=== PATIENT | female | born 1940 | race Two or more races ===

== ENCOUNTER 2017-09-16 02:41 | Inpatient (IN) | payer OTHER, MEDICAID ==
[~2017-09-16] VITALS: Ht 132.1 cm; Wt 46.7 kg
[2017-09-16] MEDS ORDERED: clonazePAM 0.5 MG TABLET PO PRN (05:00)
[2017-09-16] MEDS ORDERED: MAGNESIUM HYDROXIDE 30 ML UDC PO PRN (05:00)
[2017-09-16] MEDS ORDERED: MAG HYDROX/AL HYDROX/SIMETH 30 ML UDC PO PRN (05:00)
[2017-09-16] MEDS ORDERED: TEMAZEPAM 7.5 MG CAPSULE PO PRN (05:00)
--- NOTE | 2017-09-16 05:20 | NUR ---
ADMITTED DIRECTLY FROM [facility] VIA GURNEY, CAME TO THE UNIT AROUND 0400 ACCOMPANIED BY PARAMEDICS. PATIENT ADMITTED ON 5150 HOLD FOR GD. UPON FACE TO FACE PATIENT IS ALERT TO HER NAME ONLY. PER DAUGHTER SHE'S BEEN HEARING VOICES FOR 6 MOS. SHE IS PARANOID, ERASING NUMBERS ON HER TELEPHONE, NOT SLEEPING FOR 2 DAYS, REFUSING TO EAT ALSO FOR 2 DAYS AND HAS NO VIABLE PLAN TO CARE FOR HERSELF. PLACED PATIENT IN BED COMFORTABLY, SPEAKS CAMBODIAN ONLY, STAFF HELPED TO INTERPRET FOR HER. PATIENT IS AWAKE, ALERT, ORIENTED X3, CALM, DEPRESSED, COOPERATIVE, APPROPRIATE, THOUGHT PROCESS INTACT, FORGETFUL, RESPIRATION EVEN, BREATHING PATTERN NON-LABORED, NO APPARENT DISTRESS NOTED, 96% SAT. ON ROOM AIR. PATIENT AMBULATORY. SKIN CLEAR, NOTED CALLOUS ON HER LEFT GREAT TOE. DENIES HEARING VOICES AT THIS TIME. HX OF FALLS, PLACED ON FALL PRECAUTION, BED ALARM ACTIVATED. BELONGINGS INVENTORIED AND CHECKED FOR CONTRABAND, VALUABLES PUT TO SAFE. PATIENT IS UNDER THE PSYCHIATRIC CARE OF DR. HAMEED AND MEDICAL CARE OF DR. YOLETTE Palmer. BED LOCKED AND PLACED ON LOWEST POSITION TO MAINTAIN SAFETY. WILL CONTINUE TO MONITOR Q 15 MINS. FOR SAFETY AND BEHAVIOR. DR. DE LA VEGA NOTIFIED ABOUT MED RECONCILIATION. FAMILY WILL BE NOTIFIED OF ADMISSION.
[2017-09-16] MEDS ORDERED: LOSA25TA13 PO (06:19)
[2017-09-16] MEDS ORDERED: MEMA10TA PO (06:19)
[2017-09-16] MEDS ORDERED: HALO2TAB PO (06:19)
[2017-09-16] MEDS ORDERED: FURO-145 PO (06:19)
[2017-09-16] MEDS ORDERED: ATOR20TA PO (06:19)
[2017-09-16] MEDS ORDERED: TRAZ-182 PO (06:19)
--- NOTE | 2017-09-16 07:14 | NUR ---
MRSA SCREEN DONE
--- NOTE | 2017-09-16 07:16 | NUR ---
CALLED SON SEBASTIEN NOTIFIED ABOUT ADMISSION, UNABLE TO LEAVE A MESSAGE. NEED TO FOLLOW UP LATER.
[2017-09-16 08:00] VITALS: BP 182/92
[2017-09-16] MEDS ORDERED: TRAZODONE 50 MG TABLET PO PRN (10:00)
--- NOTE | 2017-09-16 10:47 | NUR ---
ANGÉLICA spoke with pts son Hadley [phone] who stated [facility] [address] [email or web address] [address] [facility]
--- NOTE | 2017-09-16 12:02 | NUR ---
INITIAL DISCHARGE PLAN: Patients adi Butcher [phone] wishes for patient to return to his home [address] [place] [address]. Patient also wishes to be discharged to son's home. ANGÉLICA will help form a safe and proper discharge in collaboration with .
[2017-09-16] MEDS: HALOPERIDOL 1 MG TABLET PO SCH ×2 (12:06→17:40)
[2017-09-16 16:08] VITALS: BP 151/92
[2017-09-16] MEDS: MEMANTINE HCL 5 MG TABLET PO SCH (17:40)
[2017-09-16 20:00] VITALS: BP 128/56
[2017-09-16] MEDS ORDERED: CLONIDINE HCL 0.1 MG TABLET PO PRN (21:30)
[2017-09-16] MEDS: MIRTAZAPINE 15 MG TABLET PO SCH (22:43)
[2017-09-16] MEDS: CEPHALEXIN MONOHYDRATE 500 MG CAPSULE PO SCH (22:43)
[2017-09-16] MEDS ORDERED: ATORVASTATIN 10 MG TABLET ONE (22:56)
[2017-09-16] MEDS: ATORVASTATIN 10 MG TABLET PO SCH (22:59)
[2017-09-17 08:00] VITALS: BP 125/75
[2017-09-17 08:06] LABS: ALANINE AMINOTRANSFERASE 19 U/L (12-78); ALBUMIN 3.3 g/dL (3.4-5.0); ALKALINE PHOSPHATASE 129 U/L (46-116); ASPARTATE AMINOTRANSFERASE 19 U/L (15-37); B-TYPE NATRIURETIC PEPTIDE 185 PG/ML (0-125); BILIRUBIN,TOTAL 0.3 mg/dL (0.2-1.0); CALCIUM, SERUM 8.7 mg/dL (8.5-10.1); CARBON DIOXIDE 28 mmol/L (21-32); CHLORIDE 110 mmol/L (98-107); CREATININE 0.7 mg/dL (0.6-1.3); GLUCOSE 81 mg/dL (74-106); MAGNESIUM 2.3 mg/dL (1.8-2.4); PHOSPHORUS 3.5 mg/dL (2.5-4.9); POTASSIUM 4.1 mmol/L (3.5-5.1); SODIUM SERUM 146 mmol/L (136-145); TOTAL PROTEIN, SERUM 6.4 g/dL (6.4-8.2); UREA NITROGEN, BLOOD 15 mg/dL (7-18)
[2017-09-17 08:12] LABS: CHOLESTEROL 150 mg/dL (<200); HDL CHOLESTEROL 40 mg/dL (40-60); LDL 91 mg/dL (0-99); THYROID STIMULATING HORMONE 0.585 uIU/mL (0.358-3.74); TRIGLYCERIDES 145 mg/dL (30-150)
[2017-09-17] MEDS: MEMANTINE HCL 5 MG TABLET PO SCH ×2 (08:50→16:45)
[2017-09-17] MEDS: FUROSEMIDE 20 MG TABLET PO SCH (08:50)
[2017-09-17] MEDS: CEPHALEXIN MONOHYDRATE 500 MG CAPSULE PO SCH ×2 (08:50→22:43)
[2017-09-17] MEDS: HALOPERIDOL 1 MG TABLET PO SCH ×2 (08:50→16:45)
[2017-09-17] MEDS: LOSARTAN POTASSIUM 25 MG TABLET PO SCH (08:51)
[2017-09-17 09:46] LABS: WHITE BLOOD COUNT (AUTO) 7.4 K/uL (4.3-11.0)
[2017-09-17 09:47] LABS: HEMATOCRIT 42 % (33-45); HEMOGLOBIN 13.9 g/dL (11.5-14.8); RED BLOOD CELL COUNT(AUTO) 4.65 MIL/uL (4.0-5.2)
[2017-09-17 09:48] LABS: MEAN CORPUSCULAR HEMOGLOBIN 30 PG (26.0-33.0); MEAN CORPUSCULAR HGB CONC 33 g/dl (31.0-36.0); MEAN CORPUSCULAR VOLUME 90 fL (82-100); NEUTROPHILS % (AUTO) 53.6 % (43.0-81.0); PLATELET COUNT (AUTO) 162 /CMM (150-450); RDW COEFFICIENT OF VARIATION 14.8 (11.5-15.0)
[2017-09-17 09:49] LABS: BASOPHILS # (AUTO) 0.1 /CMM (0.0-0.2); BASOPHILS % (AUTO) 0.7 % (0.0-2.0); EOSINOPHILS % (AUTO) 4.7 % (0.0-6.0); LYMPHOCYTES # (AUTO) 2.6 /CMM (0.8-4.8); LYMPHOCYTES % (AUTO) 35.1 % (20.0-44.0); MONOCYTES # (AUTO) 0.4 /CMM (0.1-1.30); MONOCYTES % (AUTO) 5.9 % (2.0-12.0); NEUTROPHILS # (AUTO) 3.9 /CMM (1.8-8.9)
[2017-09-17 16:35] VITALS: BP 128/60
[2017-09-17 17:39] LABS: APPEARANCE,URINE CLEAR (CLEAR); BILIRUBIN,URINE NEGATIVE (NEGATIVE); BLOOD, URINE NEGATIVE Ery/uL (NEGATIVE); COLOR,URINE YELLOW (YELLOW); KETONES,URINE NEGATIVE (NEGATIVE); LEUKOCYTE ESTERASE ,URINE TRACE (NEGATIVE); NITRITE, URINE NEGATIVE (NEGATIVE); PROTEIN,URINE NEGATIVE (NEGATIVE); UGLUCOSE NEGATIVE (NEGATIVE); UROBILINOGEN,URINE 0.2 EU/dL (0.2)
[2017-09-17 18:00] LABS: BACTERIA,URINE 3+ /HPF (None Seen); RBC,URINE 0-2 /HPF (0-2); SQUAMOUS EPITHELIAL CELL,UR 0-2 /HPF (None Seen)
[2017-09-17 20:00] VITALS: BP 101/53
[2017-09-17] MEDS: MIRTAZAPINE 15 MG TABLET PO SCH (22:43)
[2017-09-17] MEDS: ATORVASTATIN 10 MG TABLET PO SCH (22:43)
[2017-09-18 08:00] VITALS: BP 148/75
[2017-09-18] MEDS: FUROSEMIDE 20 MG TABLET PO SCH (08:34)
[2017-09-18] MEDS: MEMANTINE HCL 5 MG TABLET PO SCH ×2 (08:34→16:51)
[2017-09-18] MEDS: CEPHALEXIN MONOHYDRATE 500 MG CAPSULE PO SCH ×2 (08:34→21:18)
[2017-09-18] MEDS: HALOPERIDOL 1 MG TABLET PO SCH ×2 (08:34→16:52)
[2017-09-18] MEDS: LOSARTAN POTASSIUM 25 MG TABLET PO SCH (08:34)
--- NOTE | 2017-09-18 12:00 | NUR ---
[id number]: NOTIFIED BREAKDOWN PERSON LEYVA ABOUT LAB RESULTS ON 09/17/17: NA= 146, PGTIREEG=709, ALKALINE GDDEHNNWEQY=562, B-NATRIURETIC BYMGWUP=516, ALBUMIN= 3.3 AND ON 09/17/17: URINE WBC= 3-5 AND URINE BACTERIA= 3+H. NO NEW ORDERS GIVEN AT THIS TIME.
[2017-09-18] MEDS: ACETAMINOPHEN 325 MG TABLET PO PRN (13:20)
--- NOTE | 2017-09-18 14:00 | NUR ---
[id number]: NOTIFIED DR. JOHNSON REGARDING SOME MEDICATIONS WERE NOT RECONCILED AND DR. JOHNSON IS GOING TO REVIEW THE MEDICATION RECONCILIATION LIST AND MAKE CHANGES REQUIRED
[2017-09-18] MEDS: LIDOCAINE 5% (PATCH) 1 EA PATCH TP SCH (15:37)
[2017-09-18 16:00] VITALS: BP 101/64
[2017-09-18 20:04] VITALS: BP 151/75
[2017-09-18] MEDS: MIRTAZAPINE 15 MG TABLET PO SCH (21:18)
[2017-09-18] MEDS: ATORVASTATIN 10 MG TABLET PO SCH (21:19)
[2017-09-19] MEDS: HALOPERIDOL 1 MG TABLET PO SCH ×2 (08:21→17:21)
[2017-09-19] MEDS: FUROSEMIDE 20 MG TABLET PO SCH (08:21)
[2017-09-19] MEDS: LOSARTAN POTASSIUM 25 MG TABLET PO SCH (08:22)
[2017-09-19] MEDS: MEMANTINE HCL 5 MG TABLET PO SCH ×2 (08:22→17:21)
[2017-09-19 08:41] VITALS: BP 110/56
--- NOTE | 2017-09-19 09:37 | NUR ---
UR NOTE: ANGÉLICA FAXED CLINICAL REVIEW TO [facility] FAX# [phone].
[2017-09-19] MEDS: CEPHALEXIN MONOHYDRATE 500 MG CAPSULE PO SCH ×2 (09:53→21:37)
[2017-09-19] MEDS: ACETAMINOPHEN 325 MG TABLET PO PRN (09:53)
[2017-09-19] MEDS: LIDOCAINE 5% (PATCH) 1 EA PATCH TP SCH (13:58)
[2017-09-19 16:00] VITALS: BP 134/52
--- NOTE | 2017-09-19 16:10 | NUR ---
ANGÉLICA received a phone call from pts daughter Mandi Chavis [phone] to request information regarding pts mental health. ANGÉLICA informed pts daughter that pt was doing better however was still confused and MD needed more days for stabilization. Pts daughter requested that SW contact her to discuss discharge and also requested to be referred to a psychiatrist and to support groups. ANGÉLICA explained to pts daughter that pt has [employer] and encouraged pts daughter to contact them to request a referral for psychiatry within pts network. ANGÉLICA provided pts daughter with [employer] contact information. Pts daughter understood and stated she would contact [employer] to request a referral for a psychiatrist.
[2017-09-19 19:47] VITALS: BP 138/84
[2017-09-19] MEDS: MIRTAZAPINE 15 MG TABLET PO SCH (21:37)
[2017-09-19] MEDS: ATORVASTATIN 10 MG TABLET PO SCH (21:37)
[2017-09-19] MEDS: NITROFURANTOIN/NITROFURAN MAC 100 MG CAPSULE PO SCH (22:41)
[2017-09-20 07:25] LABS: CALCIUM, SERUM 8.9 mg/dL (8.5-10.1); CARBON DIOXIDE 27 mmol/L (21-32); CHLORIDE 106 mmol/L (98-107); CREATININE 0.7 mg/dL (0.6-1.3); GLUCOSE 97 mg/dL (74-106); POTASSIUM 4.2 mmol/L (3.5-5.1); SODIUM SERUM 141 mmol/L (136-145); UREA NITROGEN, BLOOD 31 mg/dL (7-18)
[2017-09-20 07:37] LABS: BASOPHILS % (AUTO) 0.1 % (0.0-2.0); EOSINOPHILS % (AUTO) 5.1 % (0.0-6.0); HEMATOCRIT 42 % (33-45); HEMOGLOBIN 13.9 g/dL (11.5-14.8); LYMPHOCYTES # (AUTO) 2.6 /CMM (0.8-4.8); LYMPHOCYTES % (AUTO) 37.3 % (20.0-44.0); MEAN CORPUSCULAR HEMOGLOBIN 30 PG (26.0-33.0); MEAN CORPUSCULAR HGB CONC 34 g/dl (31.0-36.0); MEAN CORPUSCULAR VOLUME 89 fL (82-100); MONOCYTES # (AUTO) 0.4 /CMM (0.1-1.30); MONOCYTES % (AUTO) 5.8 % (2.0-12.0); NEUTROPHILS # (AUTO) 3.7 /CMM (1.8-8.9); NEUTROPHILS % (AUTO) 51.7 % (43.0-81.0); PLATELET COUNT (AUTO) 147 /CMM (150-450); RDW COEFFICIENT OF VARIATION 13.8 (11.5-15.0); RED BLOOD CELL COUNT(AUTO) 4.67 MIL/uL (4.0-5.2); WHITE BLOOD COUNT (AUTO) 7.1 K/uL (4.3-11.0)
[2017-09-20 08:00] VITALS: BP 126/57
[2017-09-20] MEDS: HALOPERIDOL 1 MG TABLET PO SCH ×2 (08:41→16:34)
[2017-09-20] MEDS: FUROSEMIDE 20 MG TABLET PO SCH (08:41)
[2017-09-20] MEDS: MEMANTINE HCL 5 MG TABLET PO SCH ×2 (08:41→16:33)
[2017-09-20] MEDS: LOSARTAN POTASSIUM 25 MG TABLET PO SCH (08:42)
[2017-09-20] MEDS: NITROFURANTOIN/NITROFURAN MAC 100 MG CAPSULE PO SCH ×2 (08:44→20:33)
--- NOTE | 2017-09-20 09:51 | NUR ---
UR NOTE UPDATED: ANGÉLICA faxed clinical review to [facility] mental health case manager at [facility] .
[2017-09-20] MEDS: LIDOCAINE 5% (PATCH) 1 EA PATCH TP SCH (12:30)
[2017-09-20 16:10] VITALS: BP 134/63
[2017-09-20 20:38] VITALS: BP 125/59
[2017-09-20] MEDS: ATORVASTATIN 10 MG TABLET PO SCH (21:39)
[2017-09-20] MEDS: MIRTAZAPINE 15 MG TABLET PO SCH (21:39)
[2017-09-21 08:00] VITALS: BP 100/59
[2017-09-21] MEDS: FUROSEMIDE 20 MG TABLET PO SCH (09:00)
[2017-09-21] MEDS: LOSARTAN POTASSIUM 25 MG TABLET PO SCH (09:00)
[2017-09-21] MEDS: NITROFURANTOIN/NITROFURAN MAC 100 MG CAPSULE PO SCH ×2 (09:10→21:52)
[2017-09-21] MEDS: MEMANTINE HCL 5 MG TABLET PO SCH ×2 (09:10→17:25)
[2017-09-21] MEDS: HALOPERIDOL 1 MG TABLET PO SCH ×2 (09:11→17:25)
--- NOTE | 2017-09-21 13:00 | NUR ---
dr. orta in and pt. now in isolation.dr. arriaga in to see pt.merchandise flow manager found meds in pt,s bed.social service in to talk with pt. regards to med compliance.
[2017-09-21] MEDS: LIDOCAINE 5% (PATCH) 1 EA PATCH TP SCH (14:29)
[2017-09-21 16:00] VITALS: BP 125/68
--- NOTE | 2017-09-21 16:15 | NUR ---
ANGÉLICA left pts daughter Mandi Chavis [phone] a voicemail stating pt will be discharging on Tuesday09/23/17 and requested a callback.
--- NOTE | 2017-09-21 20:00 | NUR ---
GPS RN NOTE: RECEIVED PATIENT IN ROOM, SITTING IN BED READING A BOOK. ALERT AND ORIENTED X 3 BUT FORGETFUL. WITH SERBIAN INTERPRETATION, EDUCATED PATIENT REGARDING INSTRUCTIONS FOR CONTACT ISOLATION FOR ESBL E. COLI URINE, TO DRINK PLENTY OF FLUIDS PER MD, AND IMPORTANCE OF TAKING MEDICATIONS. PLEASANT, CALM, AND VERBALIZED UNDERSTANDING. DENIES COMPLAINT AND IN NO APPARENT DISTRESS AT THIS TIME. WILL CONTINUE TO MONITOR Q 15 MINUTES FOR COMFORT AND SAFETY
[2017-09-21 21:41] VITALS: BP 129/68
[2017-09-21] MEDS: MIRTAZAPINE 15 MG TABLET PO SCH (21:52)
[2017-09-21] MEDS: ATORVASTATIN 10 MG TABLET PO SCH (21:52)
[2017-09-22 08:15] VITALS: BP 150/75
[2017-09-22] MEDS: LOSARTAN POTASSIUM 25 MG TABLET PO SCH (08:25)
[2017-09-22] MEDS: MEMANTINE HCL 5 MG TABLET PO SCH ×2 (08:25→16:33)
[2017-09-22] MEDS: FUROSEMIDE 20 MG TABLET PO SCH (08:25)
[2017-09-22] MEDS: NITROFURANTOIN/NITROFURAN MAC 100 MG CAPSULE PO SCH ×2 (08:29→20:40)
--- NOTE | 2017-09-22 08:30 | NUR ---
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
--- NOTE | 2017-09-22 08:31 | NUR ---
ANGÉLICA spoke with Patients son Hadley [phone] regarding discharge and stated to contact sister Mandi. ANGÉLICA informed him that ANGÉLICA has been attempting to contact Mandi and has not been successful.
[2017-09-22] MEDS ORDERED: HALOPERIDOL 1 MG TABLET PO SCH (09:00)
[2017-09-22] MEDS ORDERED: HALOPERIDOL 1 MG TABLET PO ONE (09:30)
[2017-09-22] MEDS: LIDOCAINE 5% (PATCH) 1 EA PATCH TP SCH (14:23)
--- NOTE | 2017-09-22 15:45 | NUR ---
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
[2017-09-22 16:00] VITALS: BP 116/58
[2017-09-22] MEDS: HALOPERIDOL 1 MG TABLET PO SCH (16:33)
--- NOTE | 2017-09-22 19:47 | NUR ---
GPS RN NOTE: RECEIVED PATIENT SITTING ON BED READING BOOK, ALERT AND ORIENTED X 3, WITHDRAWN AND ON CONTACT ISOLATION, REEDUCATED ABOUT ISOLATION PRECAUTIONS, VERBALIZES YES UNDERSTANDS IN GAMBIAN. DENIES SI, HI, HALLUCINATIONS, PAIN AND IN NO APPARENT DISTRESS. BED IN LOW POSITION, SIDE RAILS UP X 2 FOR SAFETY. WILL CONTINUE TO MONITOR Q 15 FOR COMFORT AND SAFETY.
[2017-09-22 20:00] VITALS: BP 110/55
--- NOTE | 2017-09-22 21:29 | NUR ---
GPS RN NOTE: DESPITE ASSISTANCE OF RESEARCH ASST, PATIENT BEGAN TO CRY AND REFUSED HER REMERON AND LIPITOR, SAYING SHE WAS NOT SICK. SHE DID TAKE ANTIBIOTIC EARLIER. SHE ALSO REMOVED LIDOCAINE PATCH. DESPITE EDUCATION, PATIENT REFUSES MEDICATION TONIGHT. ALLOWED TO VERBALIZE HER FEELINGS AND CONCERNS WITH PARISH NURSE, WILL CONTINUE TO MONITOR FOR COMFORT AND SAFETY.
[2017-09-22] MEDS: ATORVASTATIN 10 MG TABLET PO SCH (21:36)
[2017-09-22] MEDS: MIRTAZAPINE 15 MG TABLET PO SCH (21:36)
[2017-09-23 06:40] LABS: CALCIUM, SERUM 8.9 mg/dL (8.5-10.1); CARBON DIOXIDE 29 mmol/L (21-32); CHLORIDE 107 mmol/L (98-107); CREATININE 0.8 mg/dL (0.6-1.3); GLUCOSE 95 mg/dL (74-106); POTASSIUM 4.1 mmol/L (3.5-5.1); SODIUM SERUM 143 mmol/L (136-145); UREA NITROGEN, BLOOD 33 mg/dL (7-18)
[2017-09-23 08:00] VITALS: BP 112/69
[2017-09-23] MEDS: LOSARTAN POTASSIUM 25 MG TABLET PO SCH (08:15)
[2017-09-23] MEDS: MEMANTINE HCL 5 MG TABLET PO SCH ×2 (08:15→16:08)
[2017-09-23] MEDS: NITROFURANTOIN/NITROFURAN MAC 100 MG CAPSULE PO SCH (08:15)
[2017-09-23] MEDS: FUROSEMIDE 20 MG TABLET PO SCH (08:15)
[2017-09-23] MEDS: HALOPERIDOL 1 MG TABLET PO SCH ×2 (08:15→16:09)
--- NOTE | 2017-09-23 08:39 | NUR ---
DR. HAMEED GAVE AN ORDER TO D/C HOLD AND D/C HOME AND TO FOLLOW UP WITH PSYCH AND MEDICAL DOCTORS. PT. WITHOUT DISTRESS, DENIES SUICIDAL AND HOMICIDAL (WITH ASSISTANCE OF SPRAY PILOT).
--- NOTE | 2017-09-23 12:11 | NUR ---
DR. SCHMIDT MADE AWARE OF THE DISCHARGE AND SAID OK TO DISCHARGE HOME. WROTE A PRESCRIPTIONS.
--- NOTE | 2017-09-23 13:12 | NUR ---
DISCHARGE NOTE: Pt will be discharged at 6:00pm via private vehicle home to [address] [facility] [address] by pts daughter Mandi [phone] who has been notified and agrees with discharge plan. Pts mood appears happy with congruent affect Patient denied suicidal/homicidal ideations and denied visual/auditory hallucinations. Per pts son Jorge, pt has an intake appointment with a high school social studies tutor on October 07, 2017 and an appointment with a psychiatrist on October 12, 2017 both appointments are at [facility] Address: [address] [address] . Pts daughter will also schedule a follow up appointment with [facility]: Dr. Rosie Armenta [address] [place] [address] [phone]. The multidisciplinary exitcare form was done, printed, signed, and given to the patient.
[2017-09-23] MEDS: LIDOCAINE 5% (PATCH) 1 EA PATCH TP SCH (13:27)
--- NOTE | 2017-09-23 13:28 | NUR ---
Pt. signed the discharge papers, pictues taken for the skin issues and belongings ready.
[2017-09-23 16:21] VITALS: BP 127/59
--- NOTE | 2017-09-23 18:10 | NUR ---
RN-CO: Discharge papers including prescriptions were explained to daughter Mandi Chavis and she verbalized understanding . All belongings including valuables was given back to the patient. Patient was escorted to the hospital lobby by staff.
== END 2017-09-23 18:18 | disposition home or self-care (01) | DRG 885 ==
LOC: GPS 03:28
PROVIDERS: ADMIT Psychiatry & Neurology Psychiatry; ATTEND Internal Medicine
DX: F33.3 Major depressive disorder, recurrent, severe with psychotic symptoms (principal); N17.0 Acute kidney failure with tubular necrosis; G93.41 Metabolic encephalopathy; E44.1 Mild protein-calorie malnutrition; N39.0 Urinary tract infection, site not specified; J98.11 Atelectasis; E78.5 Hyperlipidemia, unspecified; B96.20 Unspecified Escherichia coli [E. coli] as the cause of diseases classified elsewhere; F03.90 Unspecified dementia, unspecified severity, without behavioral disturbance, psychotic disturbance, mood disturbance, and anxiety; G89.29 Other chronic pain; I10 Essential (primary) hypertension; Z86.73 Personal history of transient ischemic attack (TIA), and cerebral infarction without residual deficits; Z68.26 Body mass index [BMI] 26.0-26.9, adult; Z73.6 Limitation of activities due to disability
CPT/HCPCS: 36415; 71045-TC; 80048-TC; 80053-TC; 80061-TC; 81000-TC; 83735-TC; 83880; 84100-TC; 84443-TC; 85025-TC; 87081-TC; 87086-TC; 87186-TC